=== PATIENT | male | born 1990 | race Caucasian/White ===

== ENCOUNTER 2017-01-02 21:30 | Emergency (ER) | payer SELFPAY ==
--- NOTE | 2017-01-03 19:43 | ER ---
ADMIT: 01/02/2017 RM/LOC: ER [facility] MR#: [id number] [address] [id number] [address] [place] [address] Emergency Room Report SEX: M AGE: 26 : 1990 DATE: 01/02/2017 The patient is a 26-year-old male, complaining of chipped and sore tooth #31 for the past 3 days. [facility]. Exam remarkable for nontoxic, afebrile male with obvious chipped #31 tooth lingual surface, no drainage. Treated with hydrocodone 5/325 mg #20 plus #6 from Pyxis; Pen-Vee K 1 g in department, 500 mg q.i.d. #28. Procedure: Inferior alveolar block with benzocaine 20%, Marcaine 0.5% with epi with marked improvement. Follow up with [place] dentist next week. Naveed Rhodes MD/ eloisa JOB #: [id number] CC: Naveed Rhodes MD, Attending Physician . [facility]
== END 2017-01-02 23:53 | disposition home or self-care (01) ==
LOC: ER 21:30
PROC: 3E0T3BZ Introduction of Anesthetic Agent into Peripheral Nerves and Plexi, Percutaneous Approach (ICD-10-PCS; principal; 2017-01-02)
DX: K08.89 Other specified disorders of teeth and supporting structures (principal)